=== PATIENT | female | born 1995 | race Two or more races ===

== ENCOUNTER 2025-02-05 04:38 | Emergency (ER) | payer MEDICAID, SELFPAY ==
[2025-02-05 04:39] VITALS: BMI 33.6
[2025-02-05 04:56] VITALS: BP 121/84; PULSE 88; RESP 16; TEMP 37.1; O2SAT 100
--- NOTE | 2025-02-05 05:00 | PD.EDRME ---
Rapid Medical Screening Exam [facility] Arrival date/time: 02/05/25 04:38 29F with no significant PMH presents to ED with several days of sore throat. Patient denies cough. Children in household currently have PNA. Chief Complaint: Dental/Oral/Throat Vital signs: Vital Signs Temperature 98.7 F 02/05/25 04:56 Pulse Rate 88 02/05/25 04:56 Respiratory Rate 16 02/05/25 04:56 Blood Pressure 121/84 02/05/25 04:56 Pulse Oximetry (%) 100 02/05/25 04:56 Oxygen Delivery Method Room Air 02/05/25 04:56
[2025-02-05 05:44] LABS: Strep A Rapid Negative (Negative)
--- NOTE | 2025-02-05 06:26 | PD.EDDENTL ---
ED Dental RME/HPI General Chief complaint: Dental/Oral/Throat Stated complaint: THROAT HURTS TO SWALLOW Time Seen by Provider: 02/05/25 06:19 Arrival date/time: 02/05/25 04:38 29-year-old female with no significant medical problems presents emergency department today for complaints of sore throat ongoing x 4 days patient denies any other symptoms no cough no fever no nausea vomiting. Patient reports no chance of Limitations: no limitations RME / HPI RME / HPI Narrative: 02/05/25 04:38 29F with no significant PMH presents to ED with several days of sore throat. Patient denies cough. Children in household currently have PNA. Related Data Home Medications ?Medication ?Instructions ?Recorded ?Confirmed dicyclomine 20 mg tablet 20 mg PO TID PRN Pain 04/08/24 04/08/24 ergocalciferol (vitamin D2) 1,250 1,250 mcg PO QWEEK 04/08/24 04/08/24 mcg (50,000 unit) capsule (Vitamin D2) Previous Rx's ?Medication ?Instructions ?Recorded ibuprofen 800 mg tablet 800 mg PO TID PRN pain #30 tabs 02/05/25 prednisone 10 mg tablet 30 mg (3 x 10 mg) PO BID 3 days 02/05/25 #18 tabs Allergies Allergy/AdvReac Type Severity Reaction Status Date / Time No Known Allergies Allergy Verified 04/09/24 08:02 Review of Systems Review of Systems Systems Reviewed: All systems reviewed, normal except as documented Constitutional Constitutional: Reports system reviewed and no additional complaints, except as documented, Denies fever(s) and Denies headache(s) Eyes Eyes: Reports system reviewed and no additional complaints, except as documented and Denies blurry vision ENT Ears, Nose, Mouth, and Throat: Reports system reviewed and no additional complaints, except as documented, Denies headache(s), Reports nasal congestion, Denies nasal discharge and Reports sore throat Cardiovascular Cardiovascular: Reports system reviewed and no additional complaints, except as documented, Denies chest pain and Denies dyspnea Respiratory Respiratory: Reports system reviewed and no additional complaints, except as documented, Denies chest congestion, Denies cough and Denies dyspnea Gastrointestinal Gastrointestinal: Reports system reviewed and no additional complaints, except as documented and Denies abdominal pain Integumentary/Breasts Skin/Breast: Reports system reviewed and no additional complaints, except as documented and Denies rash Neurologic Neurologic: Reports system reviewed and no additional complaints, except as documented, Reports as per HPI and Denies headache(s) Past Medical History Past Medical History NEUROLOGIC: Negative Neurological Disorders or Seizures CARDIAC: Negative Cardiac Disorders or Congestive Heart Failure RESPIRATORY: Negative Chronic Obstructive Pulmonary Disease (COPD) GASTROINTESTINAL: Positive Gastrointestinal Disorders and Gall Bladder Disease; Negative Hepatitis GENITOURINARY: Negative Genitourinary Disorders or Renal Disease REPRODUCTIVE: Positive Previous Pregnancies; Negative Breast Cancer MUSCULOSKELETAL: Negative Musculoskeletal Disorders ENDOCRINE: Negative Endocrine Disorders, Diabetes Mellitus Type 1 or Diabetes Mellitus Type 2 HEMATOLOGIC: Negative Blood Disorders OTHER HISTORY: Negative Autoimmune Disease, Shingles, Blood Transfusions, Blood Transfusion Reaction, Anesthesia Reactions, MRSA, Clostridium Difficile, Cancer or Breast Cancer Family History FAMILY HISTORY: Positive Family Cardiac Disorders, Family Cancer and Family Surgery; Negative Family Psychiatric Problems, Family Respiratory Disorders, Family Gastrointestinal Problems or Family Anesthesia Reaction Surgical History SURGICAL: Negative Section Social History SMOKING STATUS: Never smoker SECOND HAND EXPOSURE: No ED Exam General Limitations: Present no limitations General appearance: Present alert and in no apparent distress Head Head exam: Present atraumatic, normocephalic and normal inspection Eye Eye exam: Present normal appearance, PERRL and EOMI; Absent conjunctival injection ENT ENT exam: Present normal exam and normal oropharynx Neck Neck exam: Present normal inspection, full ROM and trachea midline Chest Chest inspection: Present normal inspection and symmetric chest wall rise Respiratory Respiratory exam: Present normal lung sounds bilaterally; Absent respiratory distress or wheezes Cardiovascular Cardiovascular exam: Present regular rate, normal rhythm and normal heart sounds Abdominal Exam Abdominal exam: Present soft and normal bowel sounds Extremities Exam Extremities exam: Present normal inspection and full ROM Back Exam Back exam: Present normal inspection and full ROM Neurological Exam Neurological exam: Present alert, oriented X3 and CN II-XII intact Psychiatric Psychiatric exam: Present normal affect and normal mood Skin Skin exam: Present warm, dry, intact and normal color Course Quality Measures none Orders Category Date Time Status Strep A Rapid Stat Lab 02/05/25 05:05 Completed Vital Signs Vital signs: Vital Signs Temperature 98.7 F 02/05/25 04:56 Pulse Rate 88 02/05/25 04:56 Respiratory Rate 16 02/05/25 04:56 Blood Pressure 121/84 02/05/25 04:56 Pulse Oximetry (%) 100 02/05/25 04:56 Oxygen Delivery Method Room Air 02/05/25 04:56 O2 saturation 100% room air within the limits Dental / Oral MDM Narrative MDM Narrative:: 29-year-old female with no significant medical problems presents emergency department today for complaints of sore throat ongoing x 4 days patient denies any other symptoms no cough no fever no nausea vomiting. Patient reports no chance of On exam patient well-appearing patient does not appear ill or toxic in no acute distress Patient checked for strep throat which came back negative Clinically patient does not have strep throat patient's well-appearing Patient discharged home in no distress to follow-up with primary care doctor in the next 24 to 48 hours and for any worsening symptoms to return to the ER immediately Patient data External records reviewed:: [facility] previous records Clinical information provided by:: patient Social determinants that could affect healthcare access:: none Patient has the following chronic illnesses:: none How is presenting disease/condition affected by chronic disease/condition?: no chronic disease Evaluation data The following diagnostics were reviewed and interpreted by me:: lab results Lab and/or radiology exams considered but not ordered:: Lab obtained Interpretation Summary: Reviewed by me Medications / Prescriptions Medications or Prescriptions considered but not ordered:: Given Medication administrations:: Given Consultations Consultation(s) initiated? (list below): No Diagnosis Dental Differential Diagnosis: gingival abscess and dental abscess Most likely diagnosis given after review of the tests above:: Pharyngitis Admission Indicated Admission indicated?: not indicated Admission Request Was there a request for admission?: No Disposition Plan Disposition Plan: Discharge Discharge Attestation Discharge Attestation: The patient and all family members were given an opportunity to ask questions and understood the discharge instructions. Discharge instructions specifically effects, indications for sooner follow up or return to the emergency department, and the expected course of current diagnosis. Patient condition: Stable Discharge Plan Plan Patient Disposition: HOME (Self Care) Discharge Disposition comment: Stable Prescriptions/Referrals Prescriptions/Med Rec: New prednisone 10 mg tablet 30 mg PO BID 3 Days Qty: 18 0RF ibuprofen 800 mg tablet 800 mg PO TID PRN (Reason: pain) Qty: 30 0RF No Action dicyclomine 20 mg tablet 20 mg PO TID PRN (Reason: Pain) Patient Comments: TAKE 1 TABLET BY MOUTH 3 TIMES A DAY NEEDED FOR PAIN ergocalciferol (vitamin D2) [Vitamin D2] 1,250 mcg (50,000 unit) Capsule 1,250 mcg PO QWEEK Problem List Clinical Impression: Acute viral pharyngitis Patient/Caregiver Discharge Instructions Education Materials: Self-Care for Sore Throats Additional Instructions: Please follow up with your primary care doctor in the next 24-48hrs for any worsening symptoms return here immediately Print Language: Sami Stand Alone Forms: Juliana Award Info., Patient Portal Info Letter PA/STEEL DETAILER Supervising Physician PA/STEEL DETAILER Supervising Physician: Dr. camacho
== END 2025-02-05 06:29 | disposition home or self-care (01) ==
LOC: SERX 06:46
PROVIDERS: Physician Assistant; Emergency Provider Emergency Medicine; PCP Registered Nurse Community Health
DX: J02.8 Acute pharyngitis due to other specified organisms (principal); B97.89 Other viral agents as the cause of diseases classified elsewhere
CPT/HCPCS: 87651; 99283